=== PATIENT | male | born 1980 | race Caucasian/White ===

== ENCOUNTER 2017-02-24 20:36 | Emergency (ER) | payer OTHER ==
[2017-02-24 20:51] VITALS: BP 156/87; PULSE 72; TEMP 97.8; BMI 26.2
[2017-02-24] MEDS ORDERED: FAMOTIDINE 20 MG/50 ML IVPB 50 ML IVPB ONE ×2 (21:49→22:28)
[2017-02-24] MEDS ORDERED: ONDANSETRON 4 MG/2 ML VIAL IVPUSH ONE (21:49)
[2017-02-24] MEDS ORDERED: MAG HYDROX/AL HYDROX/SIMETH 30 ML UNIT-DOSE CUP PO ONE (21:49)
[2017-02-24] MEDS ORDERED: MAG HYDROX/AL HYDROX/SIMETH 30 ML UNIT-DOSE CUP ONE (22:27)
[2017-02-24] MEDS ORDERED: ONDANSETRON 4 MG/2 ML VIAL ONE (22:28)
--- NOTE | 2017-02-24 23:12 | PDOC ---
History of Present Illness - General Chief Complaint: Nausea/Vomiting Stated Complaint: ACID REFLUX Time Seen by Provider: 02/24/17 21:35 History Source: Patient Exam Limitations: No Limitations - History of Present Illness Initial Comments: 02/24/17 22:09 Patient is a 36-year-old male with no past medical history who presents to the emergency department today complaining of a burning sensation in his throat. Patient states that this pain started approximately 3 days ago on Monday, after eating spicy meatballs. He states the pain was worse then and that he felt a burning sensation from his stomach up to his mouth. He also states that he had some chest pain and nausea associated with this. Patient did not take any medication to help with his symptoms. He presents for evaluation today because he is concerned that he could have something wrong with his heart at this time. He states there is family history of his sister passing from myocarditis. No other heart history in the family. Patient denies fevers, chills , shortness of breath, wheezing, cough, vomiting, diarrhea, constipation, lightheadedness, edema and palpitations. Past History - Travel Traveled outside of the country in the last 30 days: No Close contact w/someone who was outside of country & ill: No - Past Medical History Allergies/Adverse Reactions: Allergies Allergy/AdvReac Type Severity Reaction Status Date / Time No Known Allergies Allergy Verified 02/24/17 20:51 Home Medications: Ambulatory Orders NK [No Known Home Medication] 02/24/17 - Psycho/Social/Smoking Cessation Hx Anxiety: No Suicidal Ideation: No Smoking History: Never smoked Have you smoked in the past 12 months: No Information on smoking cessation initiated: No Hx Alcohol Use: No Drug/Substance Use Hx: No Substance Use Type: None Review of Systems - Review of Systems Able to Perform ROS?: Yes Is the patient limited Slovenian proficient: No Constitutional: No: Chills, Fever, Malaise, Weakness Respiratory: No: Cough, Shortness of Breath, Wheezing Cardiac (ROS): Yes: Chest Pain. No: Edema, Lightheadedness, Palpitations, Syncope, Chest Tightness ABD/GI: Yes: Nausea. No: Constipated, Diarrhea, Vomiting, Abdominal cramping, Tarry Stools Neurological: No: Headache, Weakness, Dizziness All Other Systems: Reviewed and Negative *Physical Exam - Vital Signs Last Vital Signs Temp Pulse Resp BP Pulse Ox 97.8 F 72 18 156/87 100 02/24/17 20:48 02/24/17 20:48 02/24/17 20:48 02/24/17 20:48 02/24/17 20:48 - Physical Exam Comments: 02/24/17 22:12 GENERAL: Well developed, well nourished. Awake and alert. No acute distress. HEENT: Normocephalic, atraumatic. PERRLA, EOMI. No conjunctival pallor. Sclera are non- icteric. Moist mucous membranes. Oropharynx is clear. NECK: Supple. Full ROM. No JVD. Carotid pulses 2+ and symmetric, without bruits. No thyromegaly. No lymphadenopathy. CARDIOVASCULAR: Regular rate and rhythm. No murmurs, rubs, or gallops. Distal pulses are 2+ and symmetric. PULMONARY: No evidence of respiratory distress. Lungs clear to auscultation bilaterally. No wheezing, rales or rhonchi. ABDOMINAL: Soft. Non-tender. Non-distended. No rebound or guarding. No organomegaly. Normoactive bowel sounds. MUSCULOSKELETAL Normal range of motion at all joints. No bony deformities or tenderness. No CVA tenderness. EXTREMITIES: No cyanosis. No clubbing. No edema. No calf tenderness. SKIN: Warm and dry. Normal capillary refill. No rashes. No jaundice. NEUROLOGICAL: Alert, awake, appropriate. Cranial nerves 2-12 intact. No deficits to light touch and temperature in face, upper extremities and lower extremities. No motor deficits in the in face, upper extremities and lower extremities. Normoreflexic in the upper and lower extremities. Normal speech. Toes are down- going bilaterally. Gait is normal without ataxia. PSYCHIATRIC: Cooperative. Good eye contact. Appropriate mood and affect. ED Treatment Course - LABORATORY CBC & Chemistry Diagram: 02/24/17 20:40 02/24/17 20:40 - RADIOLOGY Radiology Studies Ordered: Category Date Time Status CHEST PA & LAT [RAD] Stat Radiology 02/24/17 21:48 Ordered - Medications Given in the ED: ED Medications Discontinued Medications Generic Name Dose Route Start Last Admin Trade Name Freq PRN Reason Stop Dose Admin Al Hydroxide/Mg Hydroxide 30 ml 02/24/17 21:49 02/24/17 22:49 Mylanta Oral Suspension - PO 02/24/17 21:50 30 ml ONCE ONE Administration Famotidine/Sodium Chloride 50 mls @ 100 mls/hr 02/24/17 21:49 02/24/17 22:50 Pepcid 20 Mg Premixed Ivpb - IVPB 02/24/17 22:18 100 mls/hr ONCE ONE Administration Ondansetron HCl 4 mg 02/24/17 21:49 02/24/17 22:50 Zofran Injection IVPUSH 02/24/17 21:50 4 mg ONCE ONE Administration Medical Decision Making - Medical Decision Making 02/24/17 23:13 Patient is a 36-year-old male with no past medical history who presents to the emergency department today complaining of a burning sensation in his throat. Given contacts for onset of symptoms, most likely this patient is suffering from reflux. He is also complaining of some unrelated throat tightening. However given family history of myocarditis, will work the patient up at this time for ACS and/or other factors. 1.CBC, CMP, cardiac labs, lipase 2.Maalox, Zofran, Pepcid, duoneb 3.EKG, chest x-ray 4.reevaluate 02/25/17 01:59 Patient states that he is feeling much better after the medication. EKG shows a rate of 64 normal sinus rhythm with normal axis normal intervals. No acute ST-T wave changes. Chest x-ray shows no acute cardiopulmonary pathology at this time. Troponin is negative at this time. The patient does not have a white count. Lipase is also within normal limits. Patient states he feels much better after all of the medications. Given lab results and that the patient feels better with symptomatic treatment, we will discharge home at this time with a diagnosis of GERD. Patient was instructed to avoid fatty, fried and spicy foods plus alcohol for the next week. He is also injected take Maalox as needed for the burning sensation in his throat. He is also instructed to take Zantac twice a day for a week to help reduce the acid. He is instructed to follow-up with his primary care doctor. Patient understands all discharge instructions and all questions were answered at this time. Patient is comfortable with discharge. *DC/Admit/Observation/Transfer Diagnosis at time of Disposition: GERD (gastroesophageal reflux disease) - Discharge Dispostion Disposition: HOME Condition at time of disposition: Improved Admit: No - Referrals Referrals: Jomar Mcgee [Primary Care Provider] - 1 week - Patient Instructions Printed Discharge Instructions: DI for Gastroesophageal Reflux Disease (GERD) Additional Instructions: You have acid reflux. Take Maalox twice a day as needed for the burning sensations. You should also take Zantac twice a day for the next week. Avoid spicy, fatty and fried foods as this can make your symptoms worse. Your EKG was normal and your blood work was also normal today. Follow up with your primary care doctor within one week. Return to the ED if you have worsening of your symptoms, develop fevers or chills, have chest pain or shortness of breath, or any changes in your symptoms.
[2017-02-24 23:31] LABS: BASOPHIL 0.5 % (0-2.0); EOSINOPHIL 2.7 % (0-4.5); MCHC 34.8 g/dl (32.0-35.9); MEAN CELL VOLUME 89.3 fl (80-96); MEAN PLT VOLUME 8.2 fl (7.5-11.1); NEUTROPHILS 43.4 % (42.8-82.8); PLATELET COUNT 195 K/MM3 (134-434); RDW 12.6 % (11.9-15.9); WHITE BLOOD COUNT 5.8 K/mm3 (4.0-10.0)
[2017-02-24] MEDS ORDERED: ALBUTEROL SO4 2.5/IPRATROPIUM 0.5 INH SOL 3 ML VIAL.NEB. NEB ONE (23:51)
[2017-02-24 23:57] LABS: ALBUMIN 4.3 g/dl (3.4-5.0); ANION GAP 7 (8-16); CALCIUM 8.8 mg/dL (8.5-10.1); CO2 30 mmol/L (21-32); CREATININE 0.9 mg/dL (0.7-1.3); GLUCOSE,RANDOM 86 mg/dL (74-106); SGOT/AST 22 U/L (15-37); SGPT/ALT 22 U/L (12-78)
[2017-02-24 23:59] LABS: ALK PHOS 46 U/L (45-117); BILIRUBIN,TOTAL 0.6 mg/dL (0.2-1.0); TOT PROT 7.3 g/dl (6.4-8.2)
[2017-02-25 00:02] LABS: CPK 124 IU/L (39-308); TROPONIN I < 0.02 ng/ml (0.00-0.05)
--- NOTE | 2017-02-25 00:08 | PDOC ---
Attending Attestation - Resident Resident Name: Lizbet Doddca - ED Attending Attestation I have performed the following: I have examined & evaluated the patient, The case was reviewed & discussed with the resident, I agree w/resident's findings & plan, Exceptions are as noted - HPI HPI: 02/25/17 00:07 36 year old M c/ no past medical history presents with epigastric pain for two days. The patient states that he ate some spicy meatballs and develop some throat burning sensation and epigastric discomfort. Denies abdominal pain now. The patient denies smoking history or other CV risk factors. He came into the ED because his was concerned as pt has family history of viral myocarditis and ACS. Denies recent illnesses, fevers, chills. nausea, vomiting. Pt feels better after GERD medications. - Physicial Exam PE: 02/25/17 00:39 GENERAL: Awake, alert, and fully oriented, in no acute distress. HEAD: No signs of trauma EYES: PERRLA, EOMI, sclera anicteric, conjunctiva clear ENT: Auricles normal inspection, hearing grossly normal, nares patent, oropharynx clear without exudates. NECK: Normal ROM, supple, no lymphadenopathy, JVD, or masses LUNGS: Breath sounds equal, clear to auscultation bilaterally. No wheezes, and no crackles HEART: Regular rate and rhythm, normal S1 and S2, no murmurs, rubs or gallops ABDOMEN: Soft, nontender, normoactive bowel sounds. No guarding, no rebound. No masses EXTREMITIES: Normal range of motion, no edema. No clubbing or cyanosis. No cords, erythema, or tenderness NEUROLOGICAL: Cranial nerves II through XII grossly intact. Normal speech, normal gait SKIN: Warm, Dry, normal turgor, no rashes or lesions noted. - Medical Decision Making 02/25/17 00:41 Vital Signs Temp Pulse Resp BP Pulse Ox 97.8 F 72 18 156/87 100 02/24/17 20:48 02/24/17 20:48 02/24/17 20:48 02/24/17 20:48 02/24/17 20:48 I suspect that this gastritis. ECG is normal and troponin is negative. Unlikely to be ACS at this time. Pt feels reassurred. Will discharge patient and have pt follow up with PMD Heart Score/ECG Review - History History: Slightly suspicious - Electrocardiogram EKG: Normal - Age Age: </= 45 - Risk Factors Risk Factors Heart Score: Yes Positive family hx of cardiac disease Based on the list above the patient has:: 1-2 risk factors - Troponin Troponin: </= normal limit - Score Heart Score - Total: 1 #1 ECG reviewed & interpreted by me at: 22:50 02/25/17 00:41 NSR 64, no std/leigha, QTC 404 msec. normal ECG
--- NOTE | 2017-02-26 21:25 | EKG ---
Test Reason : Blood Pressure : / mmHG Vent. Rate : 064 BPM Atrial Rate : 064 BPM P-R Int : 148 ms QRS Dur : 100 ms QT Int : 392 ms P-R-T Axes : 060 035 040 degrees QTc Int : 404 ms NORMAL SINUS RHYTHM NORMAL ECG NO PREVIOUS ECGS AVAILABLE Confirmed by GINA LENTZ MD ([id number]) on 02/26/2017 9:24:40 PM Referred By: Confirmed By:GINA LENTZ MD
== END 2017-02-25 02:02 | disposition home or self-care (01) ==
LOC: JER 20:36 → SUPCPDRO 20:36 → JER 02-25 02:02
PROC: 3E0F7GC Introduction of Other Therapeutic Substance into Respiratory Tract, Via Natural or Artificial Opening (ICD-10-PCS; principal; 2017-02-24)
PROC: 3E033GC Introduction of Other Therapeutic Substance into Peripheral Vein, Percutaneous Approach (ICD-10-PCS; 2017-02-24)
PROC: 3E033GC Introduction of Other Therapeutic Substance into Peripheral Vein, Percutaneous Approach (ICD-10-PCS; 2017-02-24)
DX: K21.9 Gastro-esophageal reflux disease without esophagitis (principal)
CPT/HCPCS: 36415; 71020-TC; 80053; 83690; 84484; 85025; 93005; 93010; 99282-25